=== PATIENT | male | born 1980 | race American Indian/Alaskan Native ===

== ENCOUNTER 2018-01-19 13:06 | Emergency (ER) | payer SELFPAY ==
[2018-01-19] MEDS ORDERED: ZOFRAN ODT PO ONE (16:04)
[2018-01-19] MEDS ORDERED: NORCO 7.5/325 PO ONE (16:04)
[2018-01-19] MEDS ORDERED: MAGNESIUM SULFATE 2GM/50ML 2 GM/50 ML BAG IV ONE (16:04)
[2018-01-19] MEDS ORDERED: PROVENTIL IH ONE (16:04)
--- NOTE | 2018-01-19 16:04 | Emergency Department Report ---
Blank Doc - Documentation Documentation: Patient is a 37-year-old male with past medical history hypertension and asthma who is presenting with several weeks of cough cold congestion patient states he does not have any meds for his nebulizer machine at home and has been trying to maintain with his albuterol pump. Patient states that he does cough with yellow sputum and wheezing feels weak and also has pain in his chest and back from coughing so much. Brief physical exam patient does have diffuse wheeze to be moved to the treatment area to give nebulizer treatment and chest x-ray
[2018-01-19] MEDS ORDERED: ATROVENT IH ONE (16:05)
--- NOTE | 2018-01-19 17:55 | XRay Report ---
FINAL REPORT EXAM: XR CHEST ROUTINE 2V HISTORY: cough TECHNIQUE: Chest two views PA and lateral PRIORS: None. FINDINGS: Cardiac silhouette is at the upper limits of normal for size. There is left suprahilar increased opacity with air bronchograms present. Right lung demonstrates no acute change. Pulmonary vasculature is unremarkable. No pleural effusion identified IMPRESSION: Left upper lobe perihilar infiltrates suspicious for pneumonia
--- NOTE | 2018-01-19 18:29 | Emergency Department Report ---
HPI - General Chief Complaint: Upper Respiratory Infection Time Seen by Provider: 01/19/18 15:54 - HPI HPI: Patient is a 37-year-old male with past medical history hypertension and asthma who is presenting with several weeks of cough cold congestion patient states he does not have any meds for his nebulizer machine at home and has been trying to maintain with his albuterol pump. Patient states that he does cough with yellow sputum and wheezing feels weak and also has pain in his chest and back from coughing so much. Patient reports sore muscles 5 out of 10 to back. Pain is only with coughing. No pain without coughing. He denies any shortness of breath. No recent long distance travel resident 3 hours, no personal or family history of blood clots. Denies any nausea or vomiting. Denies any fever chills. Patient with elevated blood pressure at 166/108. Patient has no headache, dizziness or blurred vision from high blood pressure. Patient said he takes clonidine at home but she forgot to take it today. ED Past Medical Hx - Past Medical History Previous Medical History?: Yes Hx Hypertension: Yes Hx Asthma: Yes - Surgical History Past Surgical History?: No - Family History Family history: hypertension - Social History Smoking Status: Current Every Day Smoker Substance Use Type: None - Medications Home Medications: Home Medications Medication Instructions Recorded Confirmed Last Taken Type ALBUTEROL NEB's [Proventil 0.083% 2.5 mg IH Q6H PRN #1 box 01/19/18 Unknown Rx NEBS] Cetirizine HCl [ZyrTEC] 10 mg PO QAM 14 Days #14 capsule 01/19/18 Unknown Rx Levofloxacin [Levaquin] 750 mg PO QDAY 9 Days #9 tablet 01/19/18 Unknown Rx ED Review of Systems ROS: Stated complaint: COUGH Other details as noted in HPI Comment: All other systems reviewed and negative Constitutional: no symptoms reported Eyes: denies: eye pain, eye discharge, vision change ENT: denies: ear pain, throat pain Respiratory: cough, wheezing. denies: orthopnea, shortness of breath, SOB with exertion, SOB at rest, stridor Cardiovascular: denies: chest pain, palpitations, dyspnea on exertion, edema, syncope Gastrointestinal: denies: abdominal pain, nausea, vomiting Genitourinary: denies: dysuria, hematuria Musculoskeletal: back pain. denies: joint swelling, arthralgia, myalgia Skin: denies: rash Neurological: denies: headache, weakness, confusion, abnormal gait, vertigo Physical Exam - Physical Exam Vital Signs: Vital Signs 01/19/18 14:39 Temperature 98.8 F Pulse Rate 75 Respiratory 20 Rate Blood Pressure 166/108 O2 Sat by Pulse 97 Oximetry Vital Signs 01/19/18 01/19/18 01/19/18 14:39 21:45 21:50 Temperature 98.8 F Pulse Rate 75 92 H Respiratory 20 16 Rate Blood Pressure 166/108 199/123 Blood Pressure 199/123 [Left] O2 Sat by Pulse 97 97 Oximetry 01/19/18 22:35 Temperature Pulse Rate Respiratory Rate Blood Pressure Blood Pressure 172/111 [Left] O2 Sat by Pulse Oximetry [place] BP LA 168/100 @2245 General: This is a 37-year-old male well-nourished well-developed and nontoxic in appearance. Physical Exam: Head: Normocephalic, atraumatic, no abrasion, no bruising and no contusion. Eyes: Biateral pupils equal and reactive to light, bilateral EOM intact.. Bilateral conjunctival and sclera without injection, normal accommodation. No nystagmus Mouth: Moist, no pharyngeal exudate or erythema. No peritonsillar abscesses. Uvula is midline and oral airways patent. Ears: Bilateral TM congested without erythema. Bilateral EAC without any redness swelling or drainage. No mastoid bone tenderness Nose: Bilateral nasal turbinates congested with erythema and clear drainage. Maxillary and frontal sinuses tender to palpate. Neck: Supple, No Cervical adenopathy, full range of motion and no C-spine tenderness. No swelling or tracheal deviation normal reflexes Cardiovascular: S1, S2. Regular rate and rhythm. No murmur. Capillary refill is less then 3 seconds. Lungs: Wheezing throughout lung rfeeman .No chest wall tenderness. No use of accessory muscles. No chest contusion. No bruising to chest. MSK: Strength 5/5 in all extremities. No joint deformity or crepitus. Normal inspection. Full range of motion to all extremities. No laceration, abrasion or ecchymotic area noted. Patient able to fully flex and extend bilateral knees without any difficulties. Bilateral knees nontender to palpate. Abdomen: Non-tender to palpate in all quadrants, no guarding or rebound tenderness, positive bowel sounds in all quadrants. No CVA tenderness. No hernia, bruit or mass. No rigidity or distention. Extremities: No clubbing, cyanosis or edema. +2 pulses. No neurovascular compromise Skin: Clean, dry and intact. No rash or lesions. Back: No vertebral tenderness, no paraspinal tenderness. Ambulates without any difficulties. Psych: Normal mood and behavior ED Course Vital Signs 01/19/18 14:39 Temperature 98.8 F Pulse Rate 75 Respiratory 20 Rate Blood Pressure 166/108 O2 Sat by Pulse 97 Oximetry Vital Signs 01/19/18 01/19/18 01/19/18 14:39 21:45 21:50 Temperature 98.8 F Pulse Rate 75 92 H Respiratory 20 16 Rate Blood Pressure 166/108 199/123 Blood Pressure 199/123 [Left] O2 Sat by Pulse 97 97 Oximetry 01/19/18 22:35 Temperature Pulse Rate Respiratory Rate Blood Pressure Blood Pressure 172/111 [Left] O2 Sat by Pulse Oximetry Manual BP 168/100 @ 2245 - Reevaluation(s) Reevaluation #1: 01/19/18 21:00 Chest x-ray shows suspicion for pneumonia and CT scan of the chest without contrast show patient with left lower lobe pneumonia and also 1.7 cm nodule to right lower lung. He received nebulizer treatment to include albuterol, Atrovent. Patient also received magnesium 2 g IV and Solu-Medrol 125 mg IV emergency room. Upon reevaluation of the lungs, lung freeman are clear and he said he feels better. Patient received [place] 7. 03/30/2025 milligrams by mouth and Zofran 4 mg ODT for pain and prevention of nausea. Reevaluation #2: 01/19/18 21:55 Patient blood pressure is elevated and he was given clonidine 0.3 mg and will re -evaluate. Reevaluation #3: 01/19/18 22:53 BP168/100 and stable ED Medical Decision Making - Lab Data Result diagrams: 01/19/18 18:49 01/19/18 18:49 Lab Results 01/19/18 01/19/18 Range/Units 18:49 18:49 WBC 9.4 (4.5-11.0) K/mm3 RBC 5.45 H (3.65-5.03) M/mm3 Hgb 11.5 L (11.8-15.2) gm/dl Hct 37.4 (35.5-45.6) % MCV 69 L (84-94) fl MCH 21 L (28-32) pg MCHC 31 L (32-34) % RDW 18.1 H (13.2-15.2) % Plt Count 270 (140-440) K/mm3 Lymph % (Auto) 24.0 (13.4-35.0) % Morgan % (Auto) 2.7 (0.0-7.3) % Eos % (Auto) 1.1 (0.0-4.3) % Baso % (Auto) 0.5 (0.0-1.8) % Lymph # 2.3 (1.2-5.4) K/mm3 Morgan # 0.3 (0.0-0.8) K/mm3 Eos # 0.1 (0.0-0.4) K/mm3 Baso # 0.0 (0.0-0.1) K/mm3 Seg Neutrophils % 71.7 H (40.0-70.0) % Seg Neutrophils # 6.7 (1.8-7.7) K/mm3 Sodium 141 (137-145) mmol/L Potassium 3.9 (3.6-5.0) mmol/L Chloride 103.9 (98-107) mmol/L Carbon Dioxide 24 (22-30) mmol/L Anion Gap 17 mmol/L BUN 14 (9-20) mg/dL Creatinine 0.9 (0.8-1.5) mg/dL Estimated GFR > 60 ml/min BUN/Creatinine Ratio 16 % Glucose 108 H (75-100) mg/dL Calcium 8.8 (8.4-10.2) mg/dL - Radiology Data Radiology results: report reviewed Chest x-ray with left upper perihilar infiltrate suggestive of pneumonia. The chest reports ground glass infiltrates within the left lower lobe may reflect pneumonitis or pneumonia. 0.7 cm nodule within the right lower lobe. Follow-up CT recommended in 6-12 months. - Medical Decision Making ED course:` Patient presented to the emergency room with cough and some shortness of breath with cough and this has been ongoing for 4 months and he denies any chest pain. But reports back pain. He said he has asthma and he does not have nebulizer to use at home he only has the inhaler. Denies any abdominal pain. Pain is 5 out of 10 achy only with coughing. Patient does have a history of high blood pressure and his blood pressure was 166/108 but reports that he takes clonidine and he forgot to take it this morning. Patient given clonidine 0.2 mg and bp now at 168/100 and asymptomatic.He does not need any refill he said he has clonidine at home. Patient x-ray shows possible perihilar pneumonia, CT scan of the chest without contrast shows patient with left lower lobe pneumonia and also 1.7 cm nodule within the right lower lobe. Radiologist recommended follow-up CT scan in 6-12 months. He should CBC and CMP is stable. This was discussed patient and he voices understanding of discharge diagnosis, treatment plan and need to follow-up with primary care for pneumonia and also monitoring of right lower lobe nodule.Patient given norco 7.5 /325 mg po fro back pain, zofran 4 mg po to prevent nausea, albuterol nebulizer 10 mg in Atrovent 1 mg nebulizer and Solu-Medrol 125 mg IV emergency room. Upon reevaluation, lungs sounds are clear and patient said he feels better. Patient given first dose of Levaquin 750 mg by mouth for pneumonia. Patient was given information for good Rx coupon where he can get discount on Levaquin for less than $15. He has his albuterol inhaler which I told him that he can use for cough and wheezing. Patient instructed to follow up with his primary care physician in 4 days and/or return to the emergency room if his symptoms worsens. He voiced understanding and discharged home with his family in stable condition. Critical care attestation.: If time is entered above; I have spent that time in minutes in the direct care of this critically ill patient, excluding procedure time. ED Disposition Clinical Impression: Cough in adult, Elevated blood pressure reading with diagnosis of hypertension Left lower lobe pneumonia Qualifiers: Pneumonia type: due to unspecified organism Qualified Code(s): J18.1 - Lobar pneumonia, unspecified organism Asthma exacerbation Qualifiers: Asthma severity: moderate Asthma persistence: unspecified Qualified Code(s): J45.901 - Unspecified asthma with (acute) exacerbation Disposition: - TO HOME OR SELFCARE Is pt being admited?: No Does the pt Need Aspirin: No Instructions: Asthma (ED), Heart Healthy Diet (ED), Bacterial Pneumonia (ED), DASH Eating Plan (ED), Low Sodium Diet (ED), Hypertension (ED) Additional Instructions: Take antibiotic as prescribed Take albuterol inhaler for cough and wheezing over the next 2 days and then when necessary Increase her fluid intake Please use here good Rx prescription card on your phone for antibiotic discount. Keep a lo of your bp and take to Pcp Visit. Please take BP meds as directed Prescriptions: ALBUTEROL NEB's [Proventil 0.083% NEBS] 2.5 mg IH Q6H PRN #1 box PRN Reason: cough and wheezing Cetirizine HCl [ZyrTEC] 10 mg PO QAM 14 Days #14 capsule Levofloxacin [Levaquin] 750 mg PO QDAY 9 Days #9 tablet Referrals: [facility] [Outside] - 01/20/18 Forms: Work/School Release Form(ED)
[2018-01-19 19:09] LABS: Basophils % (Auto) 0.5 % (0.0-1.8); Eosinophils # (Auto) 0.1 K/mm3 (0.0-0.4); Eosinophils % (Auto) 1.1 % (0.0-4.3); Hematocrit 37.4 % (35.5-45.6); Hemoglobin 11.5 gm/dl (11.8-15.2); Lymphocytes # (Auto) 2.3 K/mm3 (1.2-5.4); Mean Corpuscular HGB Conc 31 % (32-34); Monocytes # (Auto) 0.3 K/mm3 (0.0-0.8); Monocytes % (Auto) 2.7 % (0.0-7.3); Platelet Count 270 K/mm3 (140-440); Red Blood Count 5.45 M/mm3 (3.65-5.03); Red Cell Distribution Width 18.1 % (13.2-15.2)
[2018-01-19 19:18] LABS: Mean Corpuscular Hemoglobin 21 pg (28-32); Mean Corpuscular Volume 69 fl (84-94)
[2018-01-19 20:06] LABS: BUN/Creatinine Ratio 16; Blood Urea Nitrogen 14 mg/dL (9-20); Calcium 8.8 mg/dL (8.4-10.2); Hemolysis Index 1
--- NOTE | 2018-01-19 20:06 | Cat Scan Report ---
FINAL REPORT EXAM: CT CHEST WO CON HISTORY: xr suspicious for PNA TECHNIQUE: CT chest without contrast PRIORS: None. FINDINGS: There is no evidence for mediastinal mass or pathologic lymph node enlargement. Aorta is normal in caliber. Within the inferior left lower lobe there is some confluent ground-glass appearing opacity. In the right lower lobe (axial slice 74) there is a 0.7 centimeter nodule with well-defined borders. There are no additional acute pulmonary findings. No pleural effusions are identified Visualized portion of the upper abdomen is unremarkable. IMPRESSION: Ground-glass infiltrates within the left lower lobe may reflect pneumonitis or pneumonia. 0.7 centimeter nodule within the right lower lobe. Initial follow-up CT recommended between 6 and 12 months
[2018-01-19] MEDS ORDERED: LEVAQUIN PO ONE (20:46)
[2018-01-19] MEDS ORDERED: CATAPRES PO ONE (21:46)
[2018-01-19 22:35] VITALS: BP 172/111
== END 2018-01-19 23:03 | disposition home or self-care (01) ==
LOC: ED 13:06
DX: J45.901 Unspecified asthma with (acute) exacerbation (principal); I10 Essential (primary) hypertension; J18.1 Lobar pneumonia, unspecified organism
CPT/HCPCS: 36415; 71046; 71250; 80048; 85025; 87040; 94640; 96365; 96375; 99285; J2930; J3475; Q0162